=== PATIENT | male | born 1975 | race Caucasian/White ===

== ENCOUNTER 2018-04-17 13:15 | Observation (INO) | payer OTHER ==
[2018-04-17] MEDS ORDERED: Sodium Chloride 0.9% 1000 ML 1,000 ML IV STA ×2 (13:41→13:47)
[2018-04-17] MEDS ORDERED: Sodium Chloride 0.9% 1000 ML 1,000 ML ONE ×2 (13:46→14:53)
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
[2018-04-17 13:55] LABS: VBG BASE EXCESS -0.4 (-2.0-2.0); VBG CARBOXYHEMOGLOBIN 2.3 % T HGB (0.0-6.9); VBG HCO3- 25.4 meq/L (22-28); VBG HEMOGLOBIN 14.7; VBG O2 SATURATION 65.3 (95-100); VBG POTASSIUM 5.1 (3.5-5.1); VBG pH 7.36 (7.32-7.42)
[2018-04-17 14:19] LABS: BASOPHIL % 0.6 % (0.0-0.4); Basophil (Absolute #) 0.04 (0-0.4); Eosinophil (Absolute #) 0.07 (0-0.5); Granulocyte Absolute (ANC) 5.19 (1.4-6.9); Granulocytes % 72.5 % (36.0-66.0); Hematocrit 39.3 % (42-50); Hemoglobin 14.6 gm/dl (12.5-18.0); Lymphocyte (Absolute #) 1.47 (1.0-4.6); Lymphocytes % 20.6 % (24.0-44.0); Mean Cell Volume 85.2 fl (78-100); Mean Corpuscular Hemoglobin 31.7 pg (26-32); Mean Corpuscular Hgb Concent. 37.2 g/dl (32-36); Monocyte (Absolute #) 0.38 (0.0-1.3); Monocytes % 5.3 % (0.0-12.0); Platelet Count 243 K/mm3 (150-450); Red Blood Count 4.61 M/mm3 (4.1-5.6); Red Cell Distribution Width 12.8 % (11.5-14.0)
[2018-04-17 14:24] LABS: White Blood Count 7.2 K/mm3 (4.0-10.5)
[2018-04-17 14:32] LABS: Appearance CLEAR (CLEAR); Bilirubin NEGATIVE (NEGATIVE); Blood NEGATIVE Ery/ul (0-5); Ketones SMALL (NEGATIVE); Leukocyte Esterase NEGATIVE (NEGATIVE); Nitrite NEGATIVE (NEGATIVE); Protein,Urine Dip NEGATIVE (Negative); Specific Gravity 1.028 (1.005-1.025); Urobilinogen NEGATIVE mg/dL (0-1)
[2018-04-17 14:33] LABS: ALBUMIN 4.3 g/dL (3.5-5.0); ALKALINE PHOSPHATASE 155 U/L (38-126); AMYLASE 55 U/L (30-110); ANION GAP 20.7 MEQ/L (5-15); BLOOD UREA NITROGEN 18 mg/dL (9-20); CHLORIDE 91 mmol/L (98-107); Calcium 9.2 mg/dL (8.4-10.2); Carbon Dioxide 20 mmol/L (22-30); Creatinine 1 0.86 mg/dL (0.66-1.25); LIPASE 206 U/L (23-300); Potassium 4.7 mmol/L (3.5-5.1); SGOT/AST 31 U/L (17-59); SGPT/ALT 45 U/L (0-50); SODIUM 127 mmol/L (137-145); Total Protein 7.5 g/dL (6.3-8.2)
[2018-04-17 14:37] LABS: Glucose >=500 mg/dL (NEGATIVE)
[2018-04-17 14:45] LABS: Amphetamine,Urine NEGATIVE (NEGATIVE); Barbiturate,Urine NEGATIVE (NEGATIVE); Benzodiazepine,Urine NEGATIVE (NEGATIVE); Cocaine,Urine NEGATIVE (NEGATIVE); Methadone,Urine NEGATIVE (NEGATIVE); Opiate,Urine NEGATIVE (NEGATIVE); PCP,Urine NEGATIVE (NEGATIVE); THC,Urine NEGATIVE (NEGATIVE)
[2018-04-17 14:51] LABS: Glucose 796 mg/dL (74-106)
--- NOTE | 2018-04-17 14:57 | XRAY ---
Exam: CT of the abdomen and pelvis without IV contrast from 04/17/2018. CTDI: 28.13. Comparison: None. Indication: 42-year-old male with lower left sided abdominal pain radiating down into left groin, some left flank pain. Technique: Non-IV contrast axial images were obtained through the abdomen and pelvis. Reconstructed coronal and sagittal images were created and reviewed. Findings: A prominent calcified granuloma is seen at the anterior right lung base. Otherwise, the visualized lung bases are clear except for scant linear atelectasis at the anterior aspect of both lung bases. There is equivocal evidence of a minimal sliding hiatal hernia on coronal image #89. The liver reveals some diffuse decreased attenuation consistent with hepatic steatosis. No intrahepatic biliary duct distention is seen. At the inferior medial margin of the right lobe of the liver on axial image #56, I note a 2.2 cm x 1.8 cm oval-shaped low-attenuation lesion. This measures -9.95 Hounsfield units suggesting that it probably represents a benign process such as a hepatic cyst. This low attenuation lesion is also seen on coronal images #62 through #69. The gallbladder is mostly contracted. No dense calcifications are seen within it. There is no free intraperitoneal air. I note a small fat-containing umbilical hernia on axial images #99 through #104. No bowel containing ventral hernia is seen. The abdominal aorta appears of normal diameter without aneurysm. No abnormal retroperitoneal lymphadenopathy is seen. The spleen is remarkable for a calcified granuloma. The spleen appears borderline enlarged. It measures 12.75 cm in greatest transverse diameter. Greatest spleen length on coronal image #106 is 14.2 cm. The pancreas appears normal revealing no findings of pancreatitis. The adrenal glands are of normal size and configuration. The kidneys are of unremarkable size and reveal no calculi, hydronephrosis, or definite mass. Both ureters are identified and appear of normal diameter without ureterolith. The urinary bladder is distended and reveals no calcifications within it. Abundant intraperitoneal fat is seen. The bowel is not distended. No bowel wall thickening is seen. Moderate scattered colonic stool is seen. There is mild to moderate diverticulosis within the descending colon and sigmoid colon without evidence of acute diverticulitis. The appendix is seen within the right lower quadrant and reveals no inflammatory changes to suggest acute appendicitis. The seminal vesicles and prostate gland appear unremarkable. Inguinal canals appear normal. No free intraperitoneal fluid is seen. Small postinflammatory lymph nodes are seen within each groin. The skeleton reveals no acute fracture or aggressive bone lesion. Minimal vacuum phenomena is seen within the left L5-S1 facet joint. There is also minimal vacuum disc phenomena towards the left side of L5-S1. Minimal vacuum phenomena is seen within the sacroiliac joints. There is a focal sclerotic density within the posterior aspect of the inferior portion of L1 on sagittal image #107 which may relate to a Schmorl's node. Impression: 1. I see no renal/ureteral stones, hydronephrosis, or other evidence of acute obstructive uropathy. Both ureters as well as the urinary bladder appear unremarkable. 2. Mild to moderate descending colon and sigmoid colon diverticulosis without evidence of acute diverticulitis. 3. Diffuse hepatic steatosis. I believe there is also a small cyst at the lower medial margin of the right lobe of the liver. 4. Equivocal evidence of a minimal sliding hiatal hernia. 5. Borderline splenomegaly. 6. Minimal fat-containing umbilical hernia. 7. Normal appendix. 8. No other acute process is seen within the abdomen or pelvis.
[2018-04-17 15:56] LABS: Slide Review 1 YES
[2018-04-17] MEDS ORDERED: Sodium Chloride 0.9% 1000 ML 1,000 ML IV SCH (16:00)
[2018-04-17] MEDS ORDERED: NovoLIN R SQ ONE (16:13)
[2018-04-17] MEDS ORDERED: NovoLIN R ONE (16:31)
--- NOTE | 2018-04-17 19:58 | PCM.HP ---
History of Present Illness - Chief Complaint Chief Complaint: left groin pain Date: 04/17/18 History of Present Illness: is a 42 year old male. who has been feeling very poorly for 2 weeks with nausea increased frequency of urination and excessive thirst and cramping pain in his left side to lower quadrant as well as rash around his penis. He then developed blurred vision last night and has difficulty seeing. He had no previous known history of sugar problems or other medical problems outside of his left eye missing from previous traumatic injury. - Review of Systems Constitutional: No Fever, No Chills Eyes: Vision Changes Ears, Nose, & Throat: No Symptoms Respiratory: No Cough, No Short Of Breath Cardiac: No Chest Pain, No Edema, No Syncope Abdominal/Gastrointestinal: Abdominal Pain, Nausea, No Vomiting, No Diarrhea Genitourinary Symptoms: Frequency, Urgency, No Dysuria Musculoskeletal: No Back Pain, No Neck Pain Skin: No Rash Neurological: No Dizziness, No Focal Weakness, No Sensory Changes Psychological: No Symptoms, No Alcohol Abuse, No Drug Abuse Endocrine: Polyuria, Polydipsia Hematologic/Lymphatic: No Symptoms Immunological/Allergic: No Symptoms Medications & Allergies Home Medications: Home Medication List No Reportable Medications [No Reported Medications] 04/17/18 [History Confirmed 04/17/18] Allergies/Adverse Reactions: Allergies Allergy/AdvReac Type Severity Reaction Status Date / Time No Known Drug Allergies Allergy Unverified 04/17/18 14:32 - Past Medical History Past Medical History: No Neurological History: Migraines ENT History: No Pertinent History Cardiac History: No Pertinent History Respiratory History: No Pertinent History Endocrine Medical History: No Pertinent History Musculoskelatal History: No Pertinent History GI Medical History: No Pertinent History History: No Pertinent History Pyscho-Social History: Anxiety, Depression Male Reproductive Disorders: No Pertinent History Comment: 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 - Social History Smoking Status: Former smoker How long have you smoked: years Exposure to second hand smoke: Yes Alcohol: None (previous heavy alcohol use quit 7 years ago) Drug Use: marijuana (last use 2 weeks ago) Significant Family History: other (unknown he no longer has contact with his family members. ) - Physical Exam Vital Signs: Vital Signs - 24 hr Temp Pulse Resp BP Pulse Ox 04/17/18 19:31 98.8 F 85 20 160/88 96 04/17/18 17:47 98 04/17/18 17:19 98.1 F 78 18 148/89 95 04/17/18 16:56 98.1 F 78 18 148/89 95 04/17/18 16:55 97 04/17/18 16:53 98.1 F 78 18 148/89 95 04/17/18 16:18 96 04/17/18 15:51 81 16 155/95 95 04/17/18 15:26 84 12 167/97 95 04/17/18 14:20 81 16 160/101 94 L 04/17/18 13:30 97.4 F 99 H 16 167/111 96 04/17/18 13:16 97.4 F 92 H 18 167/111 General Appearance: no apparent distress, alert Neurologic Exam: alert, oriented x 3, cooperative, normal mood/affect, nml cerebellar function, nml station & gait, sensation nml, No motor deficits Eye Exam: other (left eye prosthesis) Ears, Nose, Throat Exam: normal ENT inspection, pharynx normal, moist mucous membranes Neck Exam: normal inspection, non-tender, supple, full range of motion Respiratory Exam: normal breath sounds, lungs clear, No respiratory distress Cardiovascular Exam: regular rate/rhythm, normal heart sounds, normal peripheral pulses Gastrointestinal/Abdomen Exam: soft, normal bowel sounds, No tenderness, No mass Back Exam: normal inspection, normal range of motion, No CVA tenderness, No vertebral tenderness Extremity Exam: normal inspection, normal range of motion, pelvis stable Skin Exam: normal color, warm, dry, No rash Lymphatic Exam: No adenopathy Results - Labs Lab/Micro Results: Accuchecks Accucheck Value: 493 Lab Results-Last 24 Hours 04/17/18 04/17/18 04/17/18 Range/Units 13:50 14:00 14:00 WBC 7.2 (4.0-10.5) K/mm3 RBC 4.61 (4.1-5.6) M/mm3 Hgb 14.6 (12.5-18.0) gm/dl Hct 39.3 L (42-50) % MCV 85.2 (78-100) fl MCH 31.7 (26-32) pg MCHC 37.2 H (32-36) g/dl RDW 12.8 (11.5-14.0) % Plt Count 243 (150-450) K/mm3 MPV 10.0 H (6-9.5) fl Gran % 72.5 H (36.0-66.0) % Eos # (Auto) 0.07 (0-0.5) Absolute Lymphs (auto) 1.47 (1.0-4.6) Absolute Monos (auto) 0.38 (0.0-1.3) Lymphocytes % 20.6 L (24.0-44.0) % Monocytes % 5.3 (0.0-12.0) % Eosinophils % 1.0 (0.00-5.0) % Basophils % 0.6 (0.0-0.4) % Absolute Granulocytes 5.19 (1.4-6.9) Basophils # 0.04 (0-0.4) pO2/FiO2 Ratio 21.0 % VBG pH 7.36 (7.32-7.42) VBG pCO2 at Pat Temp 45 (42-55) mm/Hg VBG pO2 at Pat Temp 31 (25-40) mm/Hg VBG HCO3 25.4 (22-28) meq/L VBG O2 Sat (Barbara) 65.3 L (95-100) VBG Base Excess -0.4 (-2.0-2.0) VBG Hemoglobin 14.7 VBG Carboxyhemoglobin 2.3 (0.0-6.9) % T HGB POC Potassium 5.1 (3.5-5.1) Sodium 127 L (137-145) mmol/L Potassium 4.7 (3.5-5.1) mmol/L Chloride 91 L (98-107) mmol/L Carbon Dioxide 20 L (22-30) mmol/L Anion Gap 20.7 H (5-15) MEQ/L BUN 18 (9-20) mg/dL Creatinine 0.86 (0.66-1.25) mg/dL Estimated GFR > 60.0 ML/MIN Glucose 796 H* (74-106) mg/dL Hemoglobin A1c (4.5-6.0) % Calcium 9.2 (8.4-10.2) mg/dL Total Bilirubin 0.90 (0.2-1.3) mg/dL AST 31 (17-59) U/L ALT 45 (0-50) U/L Alkaline Phosphatase 155 H (38-126) U/L Serum Total Protein 7.5 (6.3-8.2) g/dL Albumin 4.3 (3.5-5.0) g/dL Amylase 55 (30-110) U/L Lipase 206 (23-300) U/L Ur Collection Type Urine Color (YELLOW) Urine Appearance (CLEAR) Urine pH (5-6) Ur Specific [place] (1.005-1.025) Urine Protein (Negative) Urine Ketones (NEGATIVE) Urine Blood (0-5) Yandel/ul Urine Nitrite (NEGATIVE) Urine Bilirubin (NEGATIVE) Urine Urobilinogen (0-1) mg/dL Ur Leukocyte Esterase (NEGATIVE) Urine WBC (Auto) (0-5) /HPF Urine RBC (Auto) (0-2) /HPF Urine Mucus (Auto) (NEGATIVE) /HPF Urine Culture Reflexed (NO) Urine Glucose (NEGATIVE) mg/dL Urine Opiates Level (NEGATIVE) Ur Methadone (NEGATIVE) Urine Barbiturates (NEGATIVE) Ur Phencyclidine (PCP) (NEGATIVE) Urine Amphetamine (NEGATIVE) U Benzodiazepine Level (NEGATIVE) Urine Cocaine (NEGATIVE) Urine Marijuana (THC) (NEGATIVE) Slides for Path Review YES 04/17/18 04/17/18 04/17/18 Range/Units 14:00 14:17 14:17 WBC (4.0-10.5) K/mm3 RBC (4.1-5.6) M/mm3 Hgb (12.5-18.0) gm/dl Hct (42-50) % MCV (78-100) fl MCH (26-32) pg MCHC (32-36) g/dl RDW (11.5-14.0) % Plt Count (150-450) K/mm3 MPV (6-9.5) fl Gran % (36.0-66.0) % Eos # (Auto) (0-0.5) Absolute Lymphs (auto) (1.0-4.6) Absolute Monos (auto) (0.0-1.3) Lymphocytes % (24.0-44.0) % Monocytes % (0.0-12.0) % Eosinophils % (0.00-5.0) % Basophils % (0.0-0.4) % Absolute Granulocytes (1.4-6.9) Basophils # (0-0.4) pO2/FiO2 Ratio % VBG pH (7.32-7.42) VBG pCO2 at Pat Temp (42-55) mm/Hg VBG pO2 at Pat Temp (25-40) mm/Hg VBG HCO3 (22-28) meq/L VBG O2 Sat (Barbara) (95-100) VBG Base Excess (-2.0-2.0) VBG Hemoglobin VBG Carboxyhemoglobin (0.0-6.9) % T HGB POC Potassium (3.5-5.1) Sodium (137-145) mmol/L Potassium (3.5-5.1) mmol/L Chloride (98-107) mmol/L Carbon Dioxide (22-30) mmol/L Anion Gap (5-15) MEQ/L BUN (9-20) mg/dL Creatinine (0.66-1.25) mg/dL Estimated GFR ML/MIN Glucose (74-106) mg/dL Hemoglobin A1c 11.52 H (4.5-6.0) % Calcium (8.4-10.2) mg/dL Total Bilirubin (0.2-1.3) mg/dL AST (17-59) U/L ALT (0-50) U/L Alkaline Phosphatase (38-126) U/L Serum Total Protein (6.3-8.2) g/dL Albumin (3.5-5.0) g/dL Amylase (30-110) U/L Lipase (23-300) U/L Ur Collection Type VOID Urine Color STRAW (YELLOW) Urine Appearance CLEAR (CLEAR) Urine pH 5.0 (5-6) Ur Specific [place] 1.028 (1.005-1.025) Urine Protein NEGATIVE (Negative) Urine Ketones SMALL (NEGATIVE) Urine Blood NEGATIVE (0-5) Yandel/ul Urine Nitrite NEGATIVE (NEGATIVE) Urine Bilirubin NEGATIVE (NEGATIVE) Urine Urobilinogen NEGATIVE (0-1) mg/dL Ur Leukocyte Esterase NEGATIVE (NEGATIVE) Urine WBC (Auto) 0-2 (0-5) /HPF Urine RBC (Auto) 0-2 (0-2) /HPF Urine Mucus (Auto) SLIGHT (NEGATIVE) /HPF Urine Culture Reflexed NO (NO) Urine Glucose >=500 (NEGATIVE) mg/dL Urine Opiates Level NEGATIVE (NEGATIVE) Ur Methadone NEGATIVE (NEGATIVE) Urine Barbiturates NEGATIVE (NEGATIVE) Ur Phencyclidine (PCP) NEGATIVE (NEGATIVE) Urine Amphetamine NEGATIVE (NEGATIVE) U Benzodiazepine Level NEGATIVE (NEGATIVE) Urine Cocaine NEGATIVE (NEGATIVE) Urine Marijuana (THC) NEGATIVE (NEGATIVE) Slides for Path Review Accuchecks Accucheck Value: 493 - Radiology Impressions Radiology Exams & Impressions: Radiology Procedures Category Date Time Status ABDOMEN AND PELVIS W/0 CONTRAS [CT] Stat Exams 04/17/18 13:41 Completed - Other Procedures and Tests Respiratory Therapy 04/17/18 17:47 Respiratory Therapy Assessment DAILY Assessment/Plan (1) Type 2 diabetes mellitus with hyperglycemia Current Visit: Yes Status: Acute Assessment & Plan: new onset with severe hyperglycemia symptomatic without dka continue fluid rehydration and glucose control continue q4h accucheck with sliding scale moderate dose and lantus start at 20 units diabetic and diet education started instructed on exercise start lisinopril and simvastatin now Code(s): E11.65 - TYPE 2 DIABETES MELLITUS WITH HYPERGLYCEMIA
[2018-04-17] MEDS ORDERED: ZOCOR 20MG PO SCH (22:00)
[2018-04-17] MEDS: Lantus Insulin SQ SCH ×2 (22:08→22:28)
[2018-04-17] MEDS: Zestril 5 MG PO SCH (22:28)
[2018-04-17] MEDS: NovoLIN R SQ PRN (22:29)
[2018-04-17] MEDS: NYSTOP 30 GM CREAM TOP SCH (22:29)
[2018-04-17] MEDS: Sodium Chloride 0.9% 1000 ML 1,000 ML IV SCH (22:56)
[2018-04-18] MEDS: NovoLIN R SQ PRN ×3 (05:09→12:44)
[2018-04-18 05:31] LABS: BASOPHIL % 0.6 % (0.0-0.4); Basophil (Absolute #) 0.03 (0-0.4); Eosinophil % 3.6 % (0.00-5.0); Eosinophil (Absolute #) 0.19 (0-0.5); Granulocyte Absolute (ANC) 2.83 (1.4-6.9); Granulocytes % 53.2 % (36.0-66.0); Hematocrit 34.4 % (42-50); Hemoglobin 12.5 gm/dl (12.5-18.0); Lymphocyte (Absolute #) 1.88 (1.0-4.6); Lymphocytes % 35.3 % (24.0-44.0); Mean Cell Volume 86.4 fl (78-100); Mean Corpuscular Hemoglobin 31.4 pg (26-32); Mean Corpuscular Hgb Concent. 36.3 g/dl (32-36); Mean Platelet Volume 9.5 fl (6-9.5); Monocyte (Absolute #) 0.39 (0.0-1.3); Monocytes % 7.3 % (0.0-12.0); Platelet Count 197 K/mm3 (150-450); Red Blood Count 3.98 M/mm3 (4.1-5.6); Red Cell Distribution Width 12.9 % (11.5-14.0); White Blood Count 5.3 K/mm3 (4.0-10.5)
[2018-04-18 05:48] LABS: ALBUMIN 3.1 g/dL (3.5-5.0); ALKALINE PHOSPHATASE 100 U/L (38-126); ANION GAP 10.6 MEQ/L (5-15); BLOOD UREA NITROGEN 11 mg/dL (9-20); CHLORIDE 102 mmol/L (98-107); Calcium 8.2 mg/dL (8.4-10.2); Carbon Dioxide 27 mmol/L (22-30); Creatinine 1 0.79 mg/dL (0.66-1.25); Glucose 313 mg/dL (74-106); Potassium 4.4 mmol/L (3.5-5.1); SGOT/AST 29 U/L (17-59); SGPT/ALT 34 U/L (0-50); SODIUM 135 mmol/L (137-145); Total Protein 5.9 g/dL (6.3-8.2)
[2018-04-18] MEDS: Sodium Chloride 0.9% 1000 ML 1,000 ML IV SCH (06:11)
--- NOTE | 2018-04-18 09:22 | PCM.DS ---
Discharge Summary Date of Admission: 04/17/18 16:46 Date of Discharge: 04/18/2018 Admitting Physician: SOPHIE LEAVITT Primary Care Provider: NO FAMILY DOCTOR Allergies Allergies No Known Drug Allergies Allergy (Unverified 04/17/18 14:32) Hospital Summary - Hospital Course Hospital Course: He presented with progressively worsening polyuria polydypsia, nausea, abdominal pain and impaired visioin. He was not previously obtaining any medical care and was unaware of any chronic conditions. He was found to have a blood sugar over >700 on arrival but was not acidotic. He was treated with iv fluids and insulin and sugar was improved to the 300's. He was feeling better and was educated on diabetes and insulin treatment. He states he does not have insurance and thus appropriate medications were arranged and he did think he would be able to afford the medications with the novolin N vial being about $25 and the others being available on [employer] $4 list per month. He was instructed on how to test his blood sugars and appropriate diet and outpatient follow up including an eye exam. He did admit to having a previous history of iv drug abuse but nothing recent and methamphetamine abuse but nothing in the last 2 weeks. We discussed screening and he did want to be screened for infectious diseases and a high risk profile was ordered prior to his discharge. He will f/ u in the clinic with blood sugar readings in 1 week and call sooner with any questions on diabetes or insulin. He was instructed on signs and symptoms of a low blood sugar and how to treat this. - Vitals & Intake/Output Vital Signs: Vital Signs Temperature 98.6 F 04/18/18 07:00 Pulse Rate 79 04/18/18 07:00 Respiratory Rate 18 04/18/18 07:00 Blood Pressure 122/74 04/18/18 07:00 O2 Sat by Pulse Oximetry 95 04/18/18 07:00 Intake & Output: Intake & Output 04/15/18 04/16/18 04/17/18 04/18/18 11:59 11:59 11:59 11:59 Intake Total 4432 Output Total 600 Balance 3832 Weight 121.7 kg - Lab Result Diagrams: 04/18/18 05:22 04/18/18 05:22 Lab Results-Last 24 Hrs: Accuchecks Date 04/18/18 Date 04/18/18 Date 04/17/18 Time 04:00 Time 00:00 Time 20:00 Accucheck Value: 270 Accucheck Value: 525 Accucheck Value: 369 Accucheck Value: 493 Lab Results-Last 24 Hours 04/17/18 04/17/18 04/17/18 Range/Units 13:50 14:00 14:00 WBC 7.2 (4.0-10.5) K/mm3 RBC 4.61 (4.1-5.6) M/mm3 Hgb 14.6 (12.5-18.0) gm/dl Hct 39.3 L (42-50) % MCV 85.2 (78-100) fl MCH 31.7 (26-32) pg MCHC 37.2 H (32-36) g/dl RDW 12.8 (11.5-14.0) % Plt Count 243 (150-450) K/mm3 MPV 10.0 H (6-9.5) fl Gran % 72.5 H (36.0-66.0) % Eos # (Auto) 0.07 (0-0.5) Absolute Lymphs (auto) 1.47 (1.0-4.6) Absolute Monos (auto) 0.38 (0.0-1.3) Lymphocytes % 20.6 L (24.0-44.0) % Monocytes % 5.3 (0.0-12.0) % Eosinophils % 1.0 (0.00-5.0) % Basophils % 0.6 (0.0-0.4) % Absolute Granulocytes 5.19 (1.4-6.9) Basophils # 0.04 (0-0.4) pO2/FiO2 Ratio 21.0 % VBG pH 7.36 (7.32-7.42) VBG pCO2 at Pat Temp 45 (42-55) mm/Hg VBG pO2 at Pat Temp 31 (25-40) mm/Hg VBG HCO3 25.4 (22-28) meq/L VBG O2 Sat (Barbara) 65.3 L (95-100) VBG Base Excess -0.4 (-2.0-2.0) VBG Hemoglobin 14.7 VBG Carboxyhemoglobin 2.3 (0.0-6.9) % T HGB POC Potassium 5.1 (3.5-5.1) Sodium 127 L (137-145) mmol/L Potassium 4.7 (3.5-5.1) mmol/L Chloride 91 L (98-107) mmol/L Carbon Dioxide 20 L (22-30) mmol/L Anion Gap 20.7 H (5-15) MEQ/L BUN 18 (9-20) mg/dL Creatinine 0.86 (0.66-1.25) mg/dL Estimated GFR > 60.0 ML/MIN Glucose 796 H* (74-106) mg/dL Hemoglobin A1c (4.5-6.0) % Calcium 9.2 (8.4-10.2) mg/dL Total Bilirubin 0.90 (0.2-1.3) mg/dL AST 31 (17-59) U/L ALT 45 (0-50) U/L Alkaline Phosphatase 155 H (38-126) U/L Serum Total Protein 7.5 (6.3-8.2) g/dL Albumin 4.3 (3.5-5.0) g/dL Amylase 55 (30-110) U/L Lipase 206 (23-300) U/L Ur Collection Type Urine Color (YELLOW) Urine Appearance (CLEAR) Urine pH (5-6) Ur Specific [place] (1.005-1.025) Urine Protein (Negative) Urine Ketones (NEGATIVE) Urine Blood (0-5) Yandel/ul Urine Nitrite (NEGATIVE) Urine Bilirubin (NEGATIVE) Urine Urobilinogen (0-1) mg/dL Ur Leukocyte Esterase (NEGATIVE) Urine WBC (Auto) (0-5) /HPF Urine RBC (Auto) (0-2) /HPF Urine Mucus (Auto) (NEGATIVE) /HPF Urine Culture Reflexed (NO) Urine Glucose (NEGATIVE) mg/dL Urine Opiates Level (NEGATIVE) Ur Methadone (NEGATIVE) Urine Barbiturates (NEGATIVE) Ur Phencyclidine (PCP) (NEGATIVE) Urine Amphetamine (NEGATIVE) U Benzodiazepine Level (NEGATIVE) Urine Cocaine (NEGATIVE) Urine Marijuana (THC) (NEGATIVE) Slides for Path Review YES 04/17/18 04/17/18 04/17/18 Range/Units 14:00 14:17 14:17 WBC (4.0-10.5) K/mm3 RBC (4.1-5.6) M/mm3 Hgb (12.5-18.0) gm/dl Hct (42-50) % MCV (78-100) fl MCH (26-32) pg MCHC (32-36) g/dl RDW (11.5-14.0) % Plt Count (150-450) K/mm3 MPV (6-9.5) fl Gran % (36.0-66.0) % Eos # (Auto) (0-0.5) Absolute Lymphs (auto) (1.0-4.6) Absolute Monos (auto) (0.0-1.3) Lymphocytes % (24.0-44.0) % Monocytes % (0.0-12.0) % Eosinophils % (0.00-5.0) % Basophils % (0.0-0.4) % Absolute Granulocytes (1.4-6.9) Basophils # (0-0.4) pO2/FiO2 Ratio % VBG pH (7.32-7.42) VBG pCO2 at Pat Temp (42-55) mm/Hg VBG pO2 at Pat Temp (25-40) mm/Hg VBG HCO3 (22-28) meq/L VBG O2 Sat (Barbara) (95-100) VBG Base Excess (-2.0-2.0) VBG Hemoglobin VBG Carboxyhemoglobin (0.0-6.9) % T HGB POC Potassium (3.5-5.1) Sodium (137-145) mmol/L Potassium (3.5-5.1) mmol/L Chloride (98-107) mmol/L Carbon Dioxide (22-30) mmol/L Anion Gap (5-15) MEQ/L BUN (9-20) mg/dL Creatinine (0.66-1.25) mg/dL Estimated GFR ML/MIN Glucose (74-106) mg/dL Hemoglobin A1c 11.52 H (4.5-6.0) % Calcium (8.4-10.2) mg/dL Total Bilirubin (0.2-1.3) mg/dL AST (17-59) U/L ALT (0-50) U/L Alkaline Phosphatase (38-126) U/L Serum Total Protein (6.3-8.2) g/dL Albumin (3.5-5.0) g/dL Amylase (30-110) U/L Lipase (23-300) U/L Ur Collection Type VOID Urine Color STRAW (YELLOW) Urine Appearance CLEAR (CLEAR) Urine pH 5.0 (5-6) Ur Specific [place] 1.028 (1.005-1.025) Urine Protein NEGATIVE (Negative) Urine Ketones SMALL (NEGATIVE) Urine Blood NEGATIVE (0-5) Yandel/ul Urine Nitrite NEGATIVE (NEGATIVE) Urine Bilirubin NEGATIVE (NEGATIVE) Urine Urobilinogen NEGATIVE (0-1) mg/dL Ur Leukocyte Esterase NEGATIVE (NEGATIVE) Urine WBC (Auto) 0-2 (0-5) /HPF Urine RBC (Auto) 0-2 (0-2) /HPF Urine Mucus (Auto) SLIGHT (NEGATIVE) /HPF Urine Culture Reflexed NO (NO) Urine Glucose >=500 (NEGATIVE) mg/dL Urine Opiates Level NEGATIVE (NEGATIVE) Ur Methadone NEGATIVE (NEGATIVE) Urine Barbiturates NEGATIVE (NEGATIVE) Ur Phencyclidine (PCP) NEGATIVE (NEGATIVE) Urine Amphetamine NEGATIVE (NEGATIVE) U Benzodiazepine Level NEGATIVE (NEGATIVE) Urine Cocaine NEGATIVE (NEGATIVE) Urine Marijuana (THC) NEGATIVE (NEGATIVE) Slides for Path Review 04/17/18 04/18/18 04/18/18 Range/Units 23:36 05:22 05:22 WBC 5.3 (4.0-10.5) K/mm3 RBC 3.98 L (4.1-5.6) M/mm3 Hgb 12.5 (12.5-18.0) gm/dl Hct 34.4 L (42-50) % MCV 86.4 (78-100) fl MCH 31.4 (26-32) pg MCHC 36.3 H (32-36) g/dl RDW 12.9 (11.5-14.0) % Plt Count 197 (150-450) K/mm3 MPV 9.5 (6-9.5) fl Gran % 53.2 (36.0-66.0) % Eos # (Auto) 0.19 (0-0.5) Absolute Lymphs (auto) 1.88 (1.0-4.6) Absolute Monos (auto) 0.39 (0.0-1.3) Lymphocytes % 35.3 (24.0-44.0) % Monocytes % 7.3 (0.0-12.0) % Eosinophils % 3.6 (0.00-5.0) % Basophils % 0.6 (0.0-0.4) % Absolute Granulocytes 2.83 (1.4-6.9) Basophils # 0.03 (0-0.4) pO2/FiO2 Ratio % VBG pH (7.32-7.42) VBG pCO2 at Pat Temp (42-55) mm/Hg VBG pO2 at Pat Temp (25-40) mm/Hg VBG HCO3 (22-28) meq/L VBG O2 Sat (Barbara) (95-100) VBG Base Excess (-2.0-2.0) VBG Hemoglobin VBG Carboxyhemoglobin (0.0-6.9) % T HGB POC Potassium (3.5-5.1) Sodium 135 L (137-145) mmol/L Potassium 4.4 (3.5-5.1) mmol/L Chloride 102 (98-107) mmol/L Carbon Dioxide 27 (22-30) mmol/L Anion Gap 10.6 (5-15) MEQ/L BUN 11 (9-20) mg/dL Creatinine 0.79 (0.66-1.25) mg/dL Estimated GFR > 60.0 ML/MIN Glucose 520 H* 313 H (74-106) mg/dL Hemoglobin A1c (4.5-6.0) % Calcium 8.2 L (8.4-10.2) mg/dL Total Bilirubin 0.50 (0.2-1.3) mg/dL AST 29 (17-59) U/L ALT 34 (0-50) U/L Alkaline Phosphatase 100 (38-126) U/L Serum Total Protein 5.9 L (6.3-8.2) g/dL Albumin 3.1 L (3.5-5.0) g/dL Amylase (30-110) U/L Lipase (23-300) U/L Ur Collection Type Urine Color (YELLOW) Urine Appearance (CLEAR) Urine pH (5-6) Ur Specific [place] (1.005-1.025) Urine Protein (Negative) Urine Ketones (NEGATIVE) Urine Blood (0-5) Yandel/ul Urine Nitrite (NEGATIVE) Urine Bilirubin (NEGATIVE) Urine Urobilinogen (0-1) mg/dL Ur Leukocyte Esterase (NEGATIVE) Urine WBC (Auto) (0-5) /HPF Urine RBC (Auto) (0-2) /HPF Urine Mucus (Auto) (NEGATIVE) /HPF Urine Culture Reflexed (NO) Urine Glucose (NEGATIVE) mg/dL Urine Opiates Level (NEGATIVE) Ur Methadone (NEGATIVE) Urine Barbiturates (NEGATIVE) Ur Phencyclidine (PCP) (NEGATIVE) Urine Amphetamine (NEGATIVE) U Benzodiazepine Level (NEGATIVE) Urine Cocaine (NEGATIVE) Urine Marijuana (THC) (NEGATIVE) Slides for Path Review Micro Results-Entire Visit: Accuchecks Date 04/18/18 Date 04/18/18 Date 04/17/18 Time 04:00 Time 00:00 Time 20:00 Accucheck Value: 270 Accucheck Value: 525 Accucheck Value: 369 Accucheck Value: 493 - Radiology Exams Ordered Rad Exams-Entire Visit: Radiology Procedures Category Date Time Status ABDOMEN AND PELVIS W/0 CONTRAS [CT] Stat Exams 04/17/18 13:41 Completed - Procedures and Test Procedures and Tests throughout Hospitalization: Therapy Orders & Screens 04/17/18 17:47 Respiratory Therapy Assessment DAILY Comment: Diagnosis: left flank pain Discharge Exam General Appearance: no apparent distress, alert Neurologic Exam: alert, oriented x 3, cooperative, normal mood/affect, nml cerebellar function, sensation nml, No motor deficits Skin Exam: normal color, warm, dry Eye Exam: eyes nml inspection, other (left eye prosthesis) Ears, Nose, Throat Exam: normal ENT inspection, pharynx normal, moist mucous membranes Neck Exam: normal inspection, non-tender, supple, full range of motion Respiratory Exam: normal breath sounds, lungs clear, No respiratory distress Cardiovascular Exam: regular rate/rhythm, normal heart sounds Gastrointestinal/Abdomen Exam: soft, No tenderness, No mass Extremity Exam: normal inspection, normal range of motion Back Exam: normal inspection, normal range of motion, No CVA tenderness, No vertebral tenderness Male Genitalia Exam: deferred Rectal Exam: deferred Final Diagnosis/Problem List - Final Discharge Diagnosis/Problem (1) Type 2 diabetes mellitus with hyperglycemia Status: Acute Onset Date: ~04/17/18 (2) 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 - Discharge Discharge Date: 04/18/18 Disposition: Home, Self-Care Condition: Stable Prescriptions: New Blood-Glucose Meter [Blood Glucose Meter] 1 each TID #1 each Blood Sugar Diagnostic [Blood Glucose Test Strip] 1 each TID #100 strip Lancets/Blood Glucose Strips [Fora [id number] Strp-Lnct] 1 each TID # 100 combo..pkg Metformin HCl 500 mg [Glucophage 500 MG] 500 mg PO BIDWM #60 tablet Syringe-Needle,Insulin,0.5 ml [Insulin Syringe] 1 each MC BID #60 disp.syrin Lovastatin 20 mg PO HS #30 tablet Insulin NPH Human Recom [Novolin N] 15 unit SQ BID #10 ml Nystatin Cream 30 gm [Nystop 30 gm Cream] 1 applic TOP BID #30 g Lisinopril 5 mg [Zestril 5 MG] 5 mg PO DAILY #30 tablet Instructions: Carbohydrate Counting Diet, Diabetes Type 2 (DC) Follow up with: SOPHIE LEAVITT [ACTIVE STAFF] - 04/25/18 3:30 pm Forms: Discharge Instructions
[2018-04-18] MEDS ORDERED: FLUZONE QUAD (36mo-64yo) 2018-2019 SYRINGE IM ONE (10:00)
[2018-04-18 11:39] VITALS: BP 126/76; PULSE 80; O2SAT 96
[2018-04-18] MEDS: Zestril 5 MG PO SCH (11:40)
[2018-04-18] MEDS: NYSTOP 30 GM CREAM TOP SCH (11:41)
[2018-04-22 12:56] LABS: RPR Screen Non Reactive (Non Reactive)
== END 2018-04-18 13:50 | disposition home or self-care (01) ==
LOC: ED 13:15 → MED SURG 16:46
PROVIDERS: ADMIT Family Medicine; ATTEND Family Medicine
DX: F19.90 Other psychoactive substance use, unspecified, uncomplicated (principal); Z79.4 Long term (current) use of insulin; F41.8 Other specified anxiety disorders
CPT/HCPCS: 36415; 74176; 80053; 80307; 81003; 82150; 82805; 82947; 82962; 83036; 83690; 85025; 86317; 86701; 86702; 86803; 87340; 87389; 87491; 87591; 90686; 93005; 93268; 94762; 96360; 96361; 96372; 99285; G0008; A9270-GY; G0378